=== PATIENT | female | born 1980 | race African-American/Black ===

== ENCOUNTER 2017-01-09 12:11 | Emergency (ER) ==
[2017-01-09 12:21] VITALS: BP 125/86; TEMP 97.5; BMI 28.3
[2017-01-09] MEDS ORDERED: ZOFRAN 4 MG/2 ML IVP STA (12:33)
[2017-01-09] MEDS ORDERED: MORPHINE 2 MG/ML SYRINGE IVP STA (12:33)
[2017-01-09] MEDS ORDERED: SODIUM CHLORIDE 1,000 ML IV STA (12:33)
[2017-01-09 13:04] LABS: BASOPHILS % (AUTO) 0.3 % (0.0-3.0); EOSINOPHILS % (AUTO) 0.1 % (0.0-7.0); HEMATOCRIT 38.4 % (37.0-47.0); HEMOGLOBIN 12.7 g/dl (12.0-16.0); IMMATURE GRANULOCYTE % (AUTO) 0.7 % (0.0-5.0); LYMPHOCYTES # (AUTO) 1.3 K/uL (0.60-3.4); LYMPHOCYTES % (AUTO) 8.8 (10.0-50.0); MEAN CORPUSCULAR HEMOGLOBIN 28.7 pg (27.0-31.0); MEAN CORPUSCULAR HGB CONC 33.1 (31.8-35.4); MEAN CORPUSCULAR VOLUME 86.7 fl (81.0-99.0); MONOCYTES # (AUTO) 0.7 K/uL (0.4-2.0); MONOCYTES % (AUTO) 4.8 (0-10); NEUTROPHILS # (AUTO) 12.4 K/ul (2.0-6.9); NEUTROPHILS % (AUTO) 85.3; PLATELET COUNT 242 10^3/uL (140-440); RED BLOOD COUNT 4.43 10^6/ul (4.20-5.40); WHITE BLOOD COUNT 14.54 K/ul (4.6-10.2)
[2017-01-09 13:23] LABS: SERUM PREGNANCY INTERNAL QC INTERNAL QC VALID
[2017-01-09 13:30] LABS: ALBUMIN 3.9 g/dL (3.4-5.0); ALBUMIN/GLOBULIN RATIO 1.44; ANION GAP 11.6; BILIRUBIN,TOTAL 0.27 mg/dL (0.00-1.20); BUN/CREATININE RATIO 7.44; CALCIUM 9.2 mg/dL (8.2-10.2); CREATININE 0.94 mg/dL (0.60-1.30); POTASSIUM 3.6 mmol/L (3.5-5.10); TOTAL PROTEIN 6.6 g/dL (6.4-8.2)
[2017-01-09 13:41] LABS: ERYTHROCYTE SEDIMENTATION RATE 8 mm/hr (0-20); ESR INTERNAL QC INTERNAL QC VALID
[2017-01-09 14:35] LABS: BILIRUBIN,URINE Negative (NEGATIVE); KETONES,URINE Negative (NEGATIVE); LEUKOCYTE ESTERASE ,URINE Trace (NEGATIVE); NITRITE,URINE Negative (NEGATIVE); PROTEIN,URINE Negative (NEGATIVE); URINE, BLOOD Trace-intact (NEGATIVE)
[2017-01-09 14:41] LABS: ADD URINE MICROSCOPIC YES
--- NOTE | 2017-01-09 14:57 | CT ---
Exam: CT of the abdomen pelvis without intravenous contrast followed by CT of the abdomen pelvis wi th intravenous contrast. Comparison: None available. Reason for exam: Right lower quadrant pain. FINDINGS: Mild basilar atelectasis with ground-glass in the partially imaged lung bases. There are several early marginated hypodensities seen within the liver measuring up to 3.6 cm. The gallbladder is unremarkable. Spleen, adrenal glands, and pancreas are grossly unremarkable. No hydronephrosis, hydroureter, or nephrolithiasis is seen in either kidney. No inflammatory changes are seen in the mesenteric or pelvic fat. The appendix is unremarkable. There is no focal small bowel dilatation or transition point. There is a 4.5 cm hypodensity in the right martha pelvis likely right adnexal/ovarian cyst. No suspicious appearing osteoblastic or osteolytic lesions. Degenerative changes are seen in the dominga mbar spine, most notably the inferior endplate of L4. There is a tiny only fat containing periumbilical hernia. Impression: 1. 4.5 cm cystic structure in the right martha pelvis is incompletely evaluated with CT imaging. Imagi ng findings suggest an ovarian cyst, pelvic inclusion cyst, or ovarian pathology. Cannot rule out o varian torsion. If clinical concern exists for pelvic pathology, transabdominal and transvaginal ul trasound may be performed. 2. Multiple hepatic hypodensities measuring up to 3.6 cm are seen throughout the liver. Recommend follow-up evaluation with MRI or three-phase liver protocol. Image interpretation was faxed to the emergency department at 1452 hours on 01/09/2017.
--- NOTE | 2017-01-09 15:10 | ED.PDOC ---
General ED Provider: Dr. GRACIELA SALINAS-ER Chief Complaint: Constipation Stated Complaint: im hurting real bad Time Seen by Physician: 12:00 Mode of Arrival: Walk-In Information Source: Patient Exam Limitations: No limitations Nursing and Triage Documentation Reviewed and Agree: Yes GI Complaint Exam - Abdominal Pain Complaint/Exam Onset: Sudden Duration: from this am Symptoms Are: Still present Timing: Constant Initial Severity: Mild Current Severity: Moderate Location of Pain: Discrete, RLQ Character: Reports: Dull, Aching, Cramping Aggravating: Reports: None Alleviating: Reports: Spontaneous resolution Associated Signs and Symptoms: Denies: Diaphoresis, Fever, Cough, Chest pain, Dizziness, Back pain, Constipation, Blood in stool, Dysuria, Urinary frequency, Decreased urine output, Decreased appetite, Vaginal bleeding, Vaginal discharge , Nausea, Vomiting, Diarrhea, Sore throat, Decreased activity Differential Diagnoses: Renal Colic, Ureteral Stone, Ectopic , Ovarian Cyst Review of Systems - Review Of Systems Constitutional: Reports: No symptoms Eyes: Reports: No symptoms Ears, Nose, Mouth, Throat: Reports: No symptoms Respiratory: Reports: No symptoms Cardiac: Reports: No symptoms GI: Reports: No symptoms, Abdominal pain : Reports: No symptoms Musculoskeletal: Reports: No symptoms Skin: Reports: No symptoms Neurological: Reports: No symptoms Endocrine: Reports: No symptoms Hematologic/Lymphatic: Reports: No symptoms All Other Systems: Reviewed and Negative Past Medical History - Past Medical History Previously Healthy: Yes Endocrine: Reports: Unknown Cardiovascular: Reports: Unknown Respiratory: Reports: Unknown Hematological: Reports: Unknown Gastrointestinal: Reports: Unknown Genitourinary: Reports: Unknown Neuro/Psych: Reports: Unknown Musculoskeletal: Reports: Unknown Cancer: Reports: Unknown Last Menstrual Period: middle of december - Surgical History General Surgical History: Reports: Unknown - Family History Family History: Reports: Unknown - Social History Smoking Status: Current every day smoker, Light tobacco smoker Hx Substance Use: Yes (marijuana) Alcohol Screening: Occasionally Lives: With family Physical Exam - Physical Exam Appearance: Well-appearing, No pain distress, Well-nourished Pain Distress: Severe Eyes: COURT, EOMI, Conjunctiva clear ENT: Ears normal, Nose normal, Oropharynx normal Neck: Supple Respiratory: Airway patent Cardiovascular: RRR, Pulses normal, No rub, No murmur GI/: Soft, Nontender, No masses, Bowel sounds normal, No Organomegaly Musculoskeletal: Normal strength, ROM intact, No edema, No calf tenderness Skin: Warm Neurological: Sensation intact, Motor intact, Reflexes intact, Cranial nerves intact, Alert, Oriented Psychiatric: Affect appropriate, Mood appropriate, Anxious Interpretation - Radiology Interpretation Radiology Interpretation By: Radiologist Radiology Results: Positive Exam Interpreted: CT Scan Physician Notification - Case Discussed Physician Notified: dr parry--graciously accepted in transfer for [facility] Critical Care Note - Critical Care Note Total Time (mins): 0 Course - Course Hematology/Chemistry: 01/09/17 12:50 01/09/17 12:50 Orders, Labs, Meds: Lab Review 01/09/17 01/09/17 01/09/17 12:33 12:50 14:15 WBC 14.54 H RBC 4.43 Hgb 12.7 Hct 38.4 MCV 86.7 MCH 28.7 MCHC 33.1 RDW Coeff of Naty 14.4 Plt Count 242 Immature Gran % (Auto) 0.7 Neut % (Auto) 85.3 Lymph % (Auto) 8.8 L Mitchell % (Auto) 4.8 Eos % (Auto) 0.1 Baso % (Auto) 0.3 Immature Gran # (Auto) 0.1 Neut # 12.4 H Lymph # 1.3 Mitchell # 0.7 Eos # 0.0 Baso # 0.0 ESR 8 Sodium 137 Potassium 3.6 Chloride 104 Carbon Dioxide 25 Anion Gap 11.6 BUN 7 Creatinine 0.94 Estimated GFR (MDRD) 81.00 BUN/Creatinine Ratio 7.44 Glucose 100 Calcium 9.2 Total Bilirubin 0.27 AST 12 L ALT 8 L Alkaline Phosphatase 38 L Total Protein 6.6 Albumin 3.9 Globulin 2.7 Albumin/Globulin Ratio 1.44 Amylase 60 Lipase 17 Serum , Qual Negative Urine Color Yellow Urine Clarity Clear Urine pH 7.0 Ur Specific [place] 1.020 Urine Protein Negative Urine Glucose (UA) Negative Urine Ketones Negative Urine Blood Trace-intact Urine Nitrite Negative Urine Bilirubin Negative Urine Urobilinogen 1.0 Ur Leukocyte Esterase Trace Urine Microscopic WBC 2-5 Ur Squamous Epith Cells 5-10 Orders Category Date Time Status NPO REMINDER: IMAGING ONCE CARE 01/09/17 12:34 Completed ED IV/MEDIPORT/POWERPORT .ONCE EMERGENCY 01/09/17 12:33 Active AMYLASE Stat LAB 01/09/17 12:50 Completed CBC W/ AUTO DIFF Stat LAB 01/09/17 12:50 Completed COMPREHENSIVE METABOLIC PANEL Stat LAB 01/09/17 12:50 Completed ESR Stat LAB 01/09/17 12:33 Completed LIPASE Stat LAB 01/09/17 12:50 Completed SERUM Stat LAB 01/09/17 12:50 Completed URINALYSIS C & S IF INDICATED Stat LAB 01/09/17 14:15 Completed 0.9 % Sodium Chloride [Saline Flush] MEDS 01/09/17 12:33 Active 1 syr IVF PRN PRN Morphine Sulfate [Morphine 2 mg/ml Syringe] MEDS 01/09/17 12:33 Discontinued 2 mg IVP ONCE STA Ondansetron HCl/Pf [Zofran 4 mg/2 ml] MEDS 01/09/17 12:33 Discontinued 4 mg IVP ONCE STA Sodium Chloride 0.9% [Sodium Chloride] 1,000 ml MEDS 01/09/17 12:33 Active IV 100 mls/hr CT ABDOMEN/PELVIS W/WO CONTRAS Stat RADS 01/09/17 12:33 Completed Medications Generic Name Dose Route Start Last Admin Trade Name Freq PRN Reason Stop Dose Admin Sodium Chloride 1,000 mls @ 100 mls/hr 01/09/17 12:33 01/09/17 13:10 Sodium Chloride IV 01/09/17 22:32 100 mls/hr .Q10H STA Administration Sodium Chloride 1 syr 01/09/17 12:33 01/09/17 13:10 Saline Flush IVF 1 syr PRN PRN Administration To flush IV Discontinued Medications Generic Name Dose Route Start Last Admin Trade Name Freq PRN Reason Stop Dose Admin Morphine Sulfate 2 mg 01/09/17 12:33 01/09/17 13:33 Morphine 2 Mg/Ml Syringe IVP 01/09/17 12:34 2 mg ONCE STA Administration Ondansetron HCl 4 mg 01/09/17 12:33 01/09/17 13:32 Zofran 4 Mg/2 Ml IVP 01/09/17 12:34 4 mg ONCE STA Administration Vital Signs: Temp Pulse Resp BP Pulse Ox 01/09/17 12:12 97.5 F L 49 L 20 125/86 100 Departure - Departure Time of Disposition: 15:10 Disposition: TSF SHORT-TRM HOSP Discharge Problem: Mass of right ovary Instructions: Ovarian Cyst (ED) Condition: Good Pt referred to PMD for follow-up: Yes Allergies/Adverse Reactions: Allergies No Known Allergies Allergy (Verified 01/09/17 12:24) Home Medications: Ambulatory Orders 1 [No Reported Medications] 01/09/17 Transfer Form Completed: Yes Disposition Discussed With: Patient
== END 2017-01-09 15:45 | disposition short-term general hospital (02) ==
LOC: ED 12:11
DX: N83.201 Unspecified ovarian cyst, right side (principal); F17.210 Nicotine dependence, cigarettes, uncomplicated
CPT/HCPCS: 36415; 80053; 81001; 82150; 83690; 84703; 85025; 85651; 96361; 96374; 96375; 99285

== ENCOUNTER 2017-01-09 15:52 | Outpatient (CLI) ==
[2017-01-09 12:21] VITALS: BMI 28.3
== END 2017-01-09 15:53 | disposition home or self-care (01) ==
LOC: AMBL 15:52
PROVIDERS: ATTEND Family Medicine
DX: R10.30 Lower abdominal pain, unspecified (principal); N83.209 Unspecified ovarian cyst, unspecified side; K59.00 Constipation, unspecified

== ENCOUNTER 2017-10-22 18:50 | Emergency (ER) ==
[2017-10-22 18:53] VITALS: BP 125/82; TEMP 99.5; BMI 27.4
[2017-10-22] MEDS ORDERED: LIDOCAINE 2% 20 ML MDV INJ STA (19:10)
--- NOTE | 2017-10-22 19:56 | ED.PDOC ---
General ED Provider: Dr. BAYLEE RIZZO Chief Complaint: Abscess Stated Complaint: one day history of mid back swelling, had minimal drainage. Has pain to lay on it. Time Seen by Physician: 19:10 Mode of Arrival: Walk-In Information Source: Patient Exam Limitations: No limitations Nursing and Triage Documentation Reviewed and Agree: Yes Reviewed sepsis parameters & appropriate labs ordered?: No System Inflammatory Response Syndrome: Not Applicable Sepsis Protocol: For patient's 13 years and over: Temp is 96.8 and below OR 101 and greater Pulse >90 BPM Resp >20/minute Acutely Altered Mental Status Are patient's symptoms suggestive of a new infection, such as: -Pneumonia -Skin, Soft Tissue -Endocarditis -UTI -Bone, Joint Infection -Implantable Device -Acute Abdominal Infection -Wound Infection -Meningitis -Blood Stream Catheter Infection -Unknown System Inflammatory Response Syndrome: Not Applicable Skin Complaint Exam - Skin/Soft Tissue Complaint/Exam Onset/Duration: 2 days Symptoms Are: Still present Timing: Constant Initial Severity: Moderate Current Severity: Severe Location: Mid back Character: Reports: Redness, Swelling, Raised, Painful Aggravating: Reports: Touch Alleviating: Reports: None Associated Signs and Symptoms: Reports: Tenderness Related History: Reports: Similar episode Related Surgical History: Reports: None Recent Exposure to Others w/Similar Symptoms: No Skin Findings: Present: Fluctuant mass Differential Diagnoses: Abscess Review of Systems - Review Of Systems Constitutional: Reports: No symptoms Eyes: Reports: No symptoms Ears, Nose, Mouth, Throat: Reports: No symptoms Respiratory: Reports: No symptoms Cardiac: Reports: No symptoms GI: Reports: No symptoms : Reports: No symptoms Musculoskeletal: Reports: No symptoms Skin: Reports: Lesions Neurological: Reports: Anxiety Endocrine: Reports: No symptoms Hematologic/Lymphatic: Reports: No symptoms All Other Systems: Reviewed and Negative Past Medical History - Past Medical History Previously Healthy: Yes Endocrine: Reports: None Cardiovascular: Reports: None Respiratory: Reports: None Hematological: Reports: None Gastrointestinal: Reports: None Genitourinary: Reports: None Neuro/Psych: Reports: None Musculoskeletal: Reports: None Cancer: Reports: None Last Menstrual Period: october 07 - Surgical History General Surgical History: Reports: None - Family History Family History: Reports: None - Social History Smoking Status: Current every day smoker, Light tobacco smoker Hx Substance Use: Yes (marijuana) Alcohol Screening: Occasionally Physical Exam - Physical Exam Appearance: Ill-appearing, Obese Pain Distress: Severe Neck: Supple Respiratory: Airway patent Cardiovascular: RRR, Pulses normal, No rub, No murmur GI/: Soft, Nontender, No masses, Bowel sounds normal, No Organomegaly Musculoskeletal: Normal strength, ROM intact, No edema, No calf tenderness Skin: Warm, Dry Neurological: Alert, Oriented Psychiatric: Anxious Procedures - Incision and Drainage Site: Mid back Instrument Used: 11 Blade I & D Procedure: Yes: Betadine Prep, Packing placed Lidocaine Used: Yes (2 % 10 mls ) Type of Drainage: Present: Pus, Blood Irrigated: Yes Progress: Tolerated fairly Critical Care Note - Critical Care Note Total Time (mins): 0 Course - Course Orders, Labs, Meds: Orders Category Date Time Status CULTURE WOUND [WOUND CULTURE] Stat LAB 10/22/17 20:00 Received Lidocaine HCl Inj [Lidocaine 2% 20 ml Mdv] MEDS 10/22/17 19:10 Discontinued 20 ml INJ ONCE STA Medications Discontinued Medications Generic Name Dose Route Start Last Admin Trade Name Freq PRN Reason Stop Dose Admin Lidocaine HCl 20 ml 10/22/17 19:10 10/22/17 20:02 Lidocaine 2% 20 Ml Mdv INJ 10/22/17 19:11 20 ml ONCE STA Administration Vital Signs: Temp Pulse Resp BP Pulse Ox 10/22/17 18:50 99.5 F 80 18 125/82 98 Departure - Departure Time of Disposition: 19:56 Disposition: HOME SELF-CARE Discharge Problem: Abscess Instructions: Abscess (ED) Condition: Stable Pt referred to PMD for follow-up: Yes IPMP verified?: No Additional Instructions: take medications as prescribed Follow up with the clinic or ER for packing change in 2-3 days Prescriptions: Ibuprofen [Motrin] 600 mg PO Q6H PRN #30 tablet PRN Reason: Analgesia Sulfamethoxazole/Trimethoprim [Bactrim Ds Tablet] 1 each PO BID #20 tablet Tramadol HCl [Ultram] 50 mg PO Q6H PRN #14 tablet PRN Reason: Severe Pain Allergies/Adverse Reactions: Allergies No Known Allergies Allergy (Verified 10/22/17 18:53) Home Medications: Ambulatory Orders Ibuprofen [Motrin] 600 mg PO Q6H PRN #30 tablet 10/22/17 Sulfamethoxazole/Trimethoprim [Bactrim Ds Tablet] 1 each PO BID #20 tablet 10/22 Tramadol HCl [Ultram] 50 mg PO Q6H PRN #14 tablet 10/22/17 Disposition Discussed With: Patient
== END 2017-10-22 20:11 | disposition home or self-care (01) ==
LOC: ED 18:50
DX: L02.212 Cutaneous abscess of back [any part, except buttock and flank] (principal); F17.210 Nicotine dependence, cigarettes, uncomplicated
CPT/HCPCS: 87070; 87077; 87186; 99283

== ENCOUNTER 2017-10-26 18:58 | Emergency (ER) ==
[2017-10-26 18:58] VITALS: BMI 27.4
[2017-10-26 19:03] VITALS: BP 126/80; TEMP 98
--- NOTE | 2017-10-26 19:31 | ED.PDOC ---
General ED Provider: Dr. SANAM RINCON Chief Complaint: Wound Check Stated Complaint: Came for the f/u on the mid back abscess, was Drained on 10-[address] Sparks, she forgot to take antibiotics. the wound is better, still hurting. no fever or chills Time Seen by Physician: 19:29 Mode of Arrival: Walk-In Information Source: Patient Nursing and Triage Documentation Reviewed and Agree: Yes Reviewed sepsis parameters & appropriate labs ordered?: No System Inflammatory Response Syndrome: Not Applicable Sepsis Protocol: For patient's 13 years and over: Temp is 96.8 and below OR 101 and greater Pulse >90 BPM Resp >20/minute Acutely Altered Mental Status Are patient's symptoms suggestive of a new infection, such as: -Pneumonia -Skin, Soft Tissue -Endocarditis -UTI -Bone, Joint Infection -Implantable Device -Acute Abdominal Infection -Wound Infection -Meningitis -Blood Stream Catheter Infection -Unknown Skin Complaint Exam - Skin/Soft Tissue Complaint/Exam Symptoms Are: Still present Timing: Constant Initial Severity: Mild Current Severity: Mild Character: Reports: Redness, Painful Aggravating: Reports: Touch Alleviating: Reports: None Associated Signs and Symptoms: Reports: Tenderness. Denies: Fever, Chills, Itching, Drainage, Bruising, Red streaks, Joint swelling Related Surgical History: Reports: None Recent Exposure to Others w/Similar Symptoms: No Skin Findings: Present: Erythema. Absent: Induration, Fluctuant mass, Lymphadenopathy Differential Diagnoses: Abscess, Cellulitis Review of Systems - Review Of Systems Constitutional: Reports: No symptoms Eyes: Reports: No symptoms Ears, Nose, Mouth, Throat: Reports: No symptoms Respiratory: Reports: No symptoms Cardiac: Reports: No symptoms GI: Reports: No symptoms : Reports: No symptoms Musculoskeletal: Reports: No symptoms Skin: Reports: No symptoms Neurological: Reports: No symptoms Endocrine: Reports: No symptoms Hematologic/Lymphatic: Reports: No symptoms All Other Systems: Reviewed and Negative Past Medical History - Past Medical History Previously Healthy: Yes Endocrine: Reports: None Cardiovascular: Reports: None Respiratory: Reports: None Hematological: Reports: None Gastrointestinal: Reports: None Genitourinary: Reports: None Neuro/Psych: Reports: None Musculoskeletal: Reports: None Cancer: Reports: None Last Menstrual Period: LAST MONTH - Surgical History General Surgical History: Reports: None - Family History Family History: Reports: None - Social History Smoking Status: Current every day smoker, Light tobacco smoker Hx Substance Use: No Alcohol Screening: None - Immunizations Tetanus Shot up to Date: Yes Physical Exam - Physical Exam Appearance: Well-appearing, No pain distress, Well-nourished Eyes: COURT, EOMI, Conjunctiva clear ENT: Ears normal, Nose normal, Oropharynx normal Respiratory: Airway patent, Breath sounds clear, Breath sounds equal, Respirations nonlabored Cardiovascular: RRR, Pulses normal, No rub, No murmur GI/: Soft, Nontender, No masses, Bowel sounds normal, No Organomegaly Musculoskeletal: Normal strength, ROM intact, No edema, No calf tenderness Skin: Warm, Dry, Normal color Neurological: Sensation intact, Motor intact, Reflexes intact, Cranial nerves intact, Alert, Oriented Psychiatric: Affect appropriate, Mood appropriate Critical Care Note - Critical Care Note Total Time (mins): 30 Course - Course Vital Signs: Temp Pulse Resp BP Pulse Ox 10/26/17 18:58 98 F 80 16 126/80 98 Departure - Departure Time of Disposition: 19:31 Disposition: HOME SELF-CARE Discharge Problem: Abscess Instructions: Abscess (ED) Condition: Stable Pt referred to PMD for follow-up: Yes IPMP verified?: No Additional Instructions: Advised to get the medications filled, Was sent Bactrim ds po bid on 10-22-17 risk of deep wound infection discussed. f/u at [facility] in 3-4 days Allergies/Adverse Reactions: Allergies No Known Allergies Allergy (Verified 10/22/17 18:53) Home Medications: Ambulatory Orders 1 [No Reported Medications] 10/26/17 Disposition Discussed With: Patient
[2017-10-26] MEDS ORDERED: BACTRIM DS 800/160 MG PO STA (19:33)
== END 2017-10-26 19:57 | disposition home or self-care (01) ==
LOC: ED 18:58
DX: L02.212 Cutaneous abscess of back [any part, except buttock and flank] (principal); Z98.890 Other specified postprocedural states
CPT/HCPCS: 99282